=== PATIENT | male | born 1960 | race Caucasian/White ===

== ENCOUNTER 2019-01-26 18:22 | Emergency (ER) | payer MEDICARE, MEDICAID ==
[~2019-01-26] VITALS: Ht 165.1 cm; Wt 68.0 kg
[2019-01-26 18:28] VITALS: Ht 165.1 cm; Wt 68.0 kg
--- NOTE | 2019-01-26 21:20 | ERD ---
ER Documentation Chief Complaint Chief Complaint pt reports he is a diabetic c/o wounds to r foot HPI 58-year-old male history of diabetes, hypertension, hyperlipidemia and DVT of the left lower extremity on Xarelto presents the ED complaining of 1 month history of worsening left foot and heel pain. Over the last week pain has become increasingly severe and is unable to sleep at night or bear weight on his foot. Blood sugars also have been out of control up to the mid 500s. Otherwise asymptomatic. Denies chest pain, palpitations or shortness of breath. No abdominal pain or back pain. Chronic lower extremity swelling. Subjective fevers and chills. ROS All systems reviewed and are negative except as per history of present illness. Allergies Allergies: Coded Allergies: No Known Allergy (Unverified , 01/26/19) PMhx/Soc Reviewed in chart. As per HPI. History of Surgery: No Anesthesia Reaction: No Hx Neurological Disorder: No Hx Respiratory Disorders: No Hx Cardiac Disorders: Yes (HTN, Hyperlipidemia) Hx Psychiatric Problems: No Hx Miscellaneous Medical Probl: Yes (Thrombosis) Hx Alcohol Use: Yes (35 years ago) Hx Substance Use: No Hx Tobacco Use: No Smoking Status: Never smoker FmHx No family history relevant to presenting complaint. Physical Exam Vitals Vital Signs Date Temp Pulse Resp B/P (MAP) Pulse Ox O2 O2 Flow FiO2 Time Delivery Rate 01/27/19 89 16 170/96 100 Room Air 00:25 (120) 01/26/19 79 14 165/91 100 Room Air 22:26 (115) 01/26/19 78 15 159/95 100 Room Air 20:46 (116) 01/26/19 97.2 94 20 134/79 99 18:28 (97) Physical Exam Const: Mild distress. Head: Atraumatic Eyes: Normal Conjunctiva ENT: Normal External Ears, Nose and Mouth. Neck: Full range of motion. Nontender. No JVD. No meningismus. Resp: Breath sounds are equal and clear to auscultation bilaterally Cardio: Regular rate and rhythm, no murmurs Abd: Soft, non tender, non distended. No rebound or guarding. Normal bowel sounds Skin: No petechiae or rashes Back: No midline or flank tenderness Ext: Left lower extremity: 1+ edema. No calf swelling or tenderness. Right lower extremity: Right foot: Heel eschar. Tender with minimal surrounding erythema. No discharge. Neur: Awake and alert. No focal deficit. Psych: Depressed mood. Result Diagram: 01/26/19213601/26/192136 Results 24 hrs Laboratory Tests Test 01/26/19 20:30 01/26/19 21:19 01/26/19 21:36 01/26/19 21:37 Bedside Glucose 330 mg/dL 314 mg/dL Blood Gas Blood venous Specimen Source Arterial Blood 01/26/2019 9:50:0 Date Drawn 8 PM Arterial Blood VENOUS LINE Gas Puncture Site Burt Test N/A Venous Blood pH 7.376 Venous Blood 42.7 mmHG pCO2 (Temp Corrected) Venous Blood pO2 37.9 mmHG (Temp Corrected) Venous Blood 24.5 mmol/L HCO3 Venous Blood 76.3 mmHG Oxygen Saturation Venous Blood -0.8 mmol/L Base Excess Venous Blood 12.5 g/dl Total Hemoglobin Venous Blood 76.1 % Oxyhemoglobin Venous Blood 0.2 % Methemoglobin Carboxyhemoglobi 0.1 % n Blood Gas 37.0 C Temperature Blood Gas ROOM AIR Modality FiO2 21.0 % Blood Gas UP Notified Whom Blood Gas 01/26/2019 10:00: Notified Time 51 PM White Blood 9.3 10^3/ul Count Red Blood Count 3.69 10^6/ul Hemoglobin 10.9 g/dl Hematocrit 33.0 % Mean Corpuscular 89.4 fl Volume Mean Corpuscular 29.5 pg Hemoglobin Mean Corpuscular 33.0 g/dl Hemoglobin Zahra nt Red Cell 12.4 % Distribution Width Platelet Count 297 10^3/UL Mean Platelet 10.4 fl Volume Immature 0.300 % Granulocytes % Neutrophils % 73.9 % Lymphocytes % 19.0 % Monocytes % 5.3 % Eosinophils % 1.1 % Basophils % 0.4 % Nucleated Red 0.0 /100WBC Blood Cells % Immature 0.030 10^3/ul Granulocytes # Neutrophils # 6.8 10^3/ul Lymphocytes # 1.8 10^3/ul Monocytes # 0.5 10^3/ul Eosinophils # 0.1 10^3/ul Basophils # 0.0 10^3/ul Nucleated Red 0.0 10^3/ul Blood Cells # Sodium Level 134 mmol/L Potassium Level 5.2 mmol/L Chloride Level 104 mmol/L Carbon Dioxide 30 mmol/L Level Anion Gap 0 Blood Urea 46 mg/dl Nitrogen Creatinine 1.69 mg/dl Est Glomerular 42 mL/min Filtrat Rate mL/min Glucose Level 345 mg/dl Calcium Level 10.7 mg/dl Phosphorus Level 3.3 mg/dl Magnesium Level 2.4 mg/dl Current Medications Medications Dose Sig/Win Start Time Status Last (Trade) Ordered Route PRN Stop Time Admin Dose Reason Admin Sodium 680 ml @ ONCE ONCE 01/26/19 DC 01/26/19 Chloride 680 mls/hr IV 21:30 22:13 01/26/19 22:29 Vancomycin 250 ml @ ONCE ONCE 01/26/19 HCl 125 mls/hr IVPB 23:30 01/27/19 01:29 Piperacillin 100 ml @ ONCE STAT 01/26/19 DC 01/26/19 Sod/ 200 mls/hr IVPB 23:30 23:42 Tazobactam 01/26/19 23:59 Sod Procedures/MDM DOCUMENTS REVIEWED: ED nurse, no prior records IMAGING: PROCEDURE: CHEST X-RAY CLINICAL INDICATION: Sepsis TECHNIQUE: Portable AP semi erect one-view COMPARISON: None FINDINGS: Heart size and pulmonary vascularity appears unremarkable. No acute infiltrates, edema, pneumothorax noted. Osteophytic spurring of the dorsal spine noted. IMPRESSION: No acute process noted radiographically RPTAT: [facility] Physician Regine Date Time Electronically viewed and signed by Physician Regine on 01/26/2019 22:10 MB/ PROCEDURE: Right foot CLINICAL INDICATION: The heel ulcer TECHNIQUE: 3 views COMPARISON: None FINDINGS: Osseous structures appear osteopenic with no acute fracture, dislocation noted. Moderate posterior tibial and plantar and digital artery artery calcification seen. No radiopaque foreign body, cortical erosion noted. Calcaneus appears intact with no erosion seen. IMPRESSION: No acute fracture, dislocation or cortical erosion noted. If further workup is desired, bone scan may be helpful RPTAT: [facility] Radha Dior Physician Date Time Electronically viewed and signed by Physician Regine on 01/26/2019 22:11 PROCEDURE: US Duplex Right Lower Extremity Arteries CLINICAL INDICATION: Right lower extremity arterial insufficiency. TECHNIQUE: Real-time duplex ultrasound scan of the right lower extremity arteries integrating B-mode two-dimensional vascular structure, Doppler spectral analysis and color flow Doppler imaging. COMPARISON: None FINDINGS: RIGHT COMMON FEMORAL ARTERY: Mild atherosclerosis No acute findings. No occlusion or significant stenosis on color flow and spectral Doppler imaging. Normal waveform. RIGHT SUPERFICIAL FEMORAL ARTERY: Mild atherosclerosis No acute findings. No occlusion or significant stenosis on color flow and spectral Doppler imaging. Normal waveform. RIGHT POPLITEAL ARTERY: Mild atherosclerosis No acute findings. No occlusion or significant stenosis on color flow and spectral Doppler imaging. Normal waveform. RIGHT CALF/FOOT ARTERIES: Diminished, monophasic waveforms in the right dors ceasar pedis. The right posterior tibial demonstrates normal triphasic wave forms. SOFT TISSUES: Unremarkable. IMPRESSION: 1. Significant arterial disease demonstrated below the knee in the right dorsalis pedis artery. 2. No other significant disease demonstrated. RPTAT: [facility] Reymundo Coombs Physician Co Director Date Time Electronically viewed and signed by Reymundo Coombs Physician Co Director on 01/27/2019 00:03 [employer]-year-old male history of diabetes, hypertension, hyperlipidemia and DVT of the left lower extremity on Xarelto presents the ED complaining of 1 month history of worsening left foot and heel pain. CBC significant for anemia but no leukocytosis or thrombocytopenia. Chemistry reveals elevated BUN/creatinine consistent with chronic kidney disease although no prior labs are available for comparison. Borderline hyperkalemia. Hyperglycemia without anion gap acidosis or evidence of DKA or HHS. X-rays of the foot reveal no evidence of subcutaneous emphysema or osteomyelitis. Arterial Dopplers consistent with significant arterial disease below the knee but no acute obstruction. Patient presents with diabetic foot infection treated with vancomycin and Zosyn. No criteria for systemic inflammatory response syndrome or sepsis. Patient was evaluated in the ED by Dr. Simsin was arranged for the patient be transferred to [facility] under the care of Dr. Christine Gutiérrez. Patient is stable for transfer. Departure Diagnosis: Primary Impression: Diabetic infection of right foot Additional Impressions: Diabetes mellitus out of control Diabetes mellitus type: type 2 Glycemic state: with hyperglycemia Qualified Codes: E11.65 - Type 2 diabetes mellitus with hyperglycemia Chronic kidney disease (CKD) Chronic kidney disease stage: unspecified stage Qualified Codes: N18.9 - Chronic kidney disease, unspecified Accelerated hypertension Anemia Anemia type: unspecified type Qualified Codes: D64.9 - Anemia, unspecified Condition: Serious CHELSEY MILAN MD Jan 26, 2019 21:20
[2019-01-26] MEDS ORDERED: SOD CHLORIDE 0.9% 680 ML IV ONE (21:30)
[2019-01-26] MEDS ORDERED: PIPER-TAZO 3.375 GM IV (PMX) 100 ML IVPB STA (23:30)
[2019-01-26] MEDS ORDERED: VANCOMYCIN 1 GM (PMX) 250 ML IVPB ONE (23:30)
[2019-01-27] MEDS ORDERED: ALBUTEROL 0.5% (NEB) 2.5 MG/0.5 ML AMP NEB ONE (00:29)
[2019-01-27 04:00] VITALS: BP 148/98; PULSE 99; RESP 16
== END 2019-01-27 04:34 | disposition home or self-care (01) ==
LOC: E/R 18:22
DX: L08.9 Local infection of the skin and subcutaneous tissue, unspecified (principal); E11.65 Type 2 diabetes mellitus with hyperglycemia; I12.9 Hypertensive chronic kidney disease with stage 1 through stage 4 chronic kidney disease, or unspecified chronic kidney disease; N18.9 Chronic kidney disease, unspecified; D64.9 Anemia, unspecified; E11.22 Type 2 diabetes mellitus with diabetic chronic kidney disease
CPT/HCPCS: 36415; 71045; 73630; 80048; 82803; 82962; 83735; 84100; 85025; 87040; 93976; 94644; 96374; 96375; 99284; J2543; J3370; J7030